=== PATIENT | female | born 1955 | race African-American/Black ===

== ENCOUNTER 2021-10-11 12:47 | Emergency (ER) | payer MEDICARE, MEDICAID ==
[~2021-10-11] VITALS: Ht 157.5 cm; Wt 56.0 kg
[2021-10-11 14:11] LABS: BASOPHILS % 1.2 % (0.0-2.0); EOSINOPHILS % 0.6 % (0.0-5.0); HEMATOCRIT. 40.9 % (36.0-48.0); HEMOGLOBIN. 13.8 g/dL (12.0-16.0); LYMPHOCYTES % 25.7 % (20.0-50.0); MEAN CORPUSCULAR HEMOGLOBIN 33.4 pg (28.0-32.0); MEAN CORPUSCULAR VOLUME 99.3 fL (81.0-99.0); MEAN PLATELET VOLUME 8.3 fl (7.4-10.4); MONOCYTES % 7.4 % (2.0-8.0); NEUTROPHILS % 65.1 % (40.0-76.0); PLATELET 206 x1000/uL (130-400); RED BLOOD CELL COUNT 4.12 mill/uL (4.2-5.4); RED CELL DISTRIBUTION WIDTH 13.4 % (11.6-14.6)
[2021-10-11 14:15] LABS: CHLORIDE 106 mEq/L (98-107)
[2021-10-11] MEDS ORDERED: CARB100C9 MT (17:32)
[2021-10-11 18:18] VITALS: BP 127/74
== END 2021-10-11 18:19 | disposition home or self-care (01) ==
LOC: ER 12:47
DX: G50.0 Trigeminal neuralgia (principal); I49.9 Cardiac arrhythmia, unspecified; Z88.6 Allergy status to analgesic agent; Z98.890 Other specified postprocedural states
CPT/HCPCS: 36415; 71045; 80053; 83880; 84484; 85025; 93005; 99285